=== PATIENT | female | born 1960 | race Two or more races ===

== ENCOUNTER 2018-04-13 08:16 | Emergency (ER) | payer OTHER ==
[~2018-04-13] VITALS: Ht 165.1 cm; Wt 77.1 kg
[2018-04-13] MEDS ORDERED: CLOPIDOGREL300 MG (08:26)
[2018-04-13] MEDS ORDERED: LIPITOR40 MG (08:26)
[2018-04-13] MEDS ORDERED: GABAPENTIN300 MG (08:27)
[2018-04-13] MEDS ORDERED: LANTUS SOL100 UNIT/1 (08:27)
[2018-04-13] MEDS ORDERED: COZAAR25 MG (08:27)
[2018-04-13] MEDS ORDERED: RANITIDINE HCL75 MG (08:27)
[2018-04-13] MEDS ORDERED: HUMULIN N100 UNIT/2 (08:27)
== END 2018-04-13 09:47 | disposition home or self-care (01) ==
LOC: ER 08:16
DX: I16.0 Hypertensive urgency (principal); I10 Essential (primary) hypertension

== ENCOUNTER 2018-06-17 10:59 | Outpatient (CLI) | payer OTHER ==
[~2018-06-17 10:59] MED LIST: CLOPIDOGREL300 MG; COZAAR25 MG; GABAPENTIN300 MG; HUMULIN N100 UNIT/2; LANTUS SOL100 UNIT/1; LIPITOR40 MG; RANITIDINE HCL75 MG
== END 2018-06-17 15:35 | disposition home or self-care (01) ==
LOC: RAD 10:59
DX: L97.909 Non-pressure chronic ulcer of unspecified part of unspecified lower leg with unspecified severity (principal)